=== PATIENT | male | born 1965 | race Caucasian/White ===

== ENCOUNTER → 2020-05-02 | Outpatient (CLI) | payer OTHER ==
--- NOTE | 2020-05-02 15:15 | US ---
EXAMINATION TYPE: US gallbladder DATE OF EXAM: 05/02/2020 COMPARISON: NONE CLINICAL HISTORY: 55-year-old male R10.11 RUQ pain. Abnormal blood work TECHNIQUE: Multiple sonographic images of the right upper quadrant are obtained. FINDINGS: EXAM MEASUREMENTS: Liver Length: 15.7 cm Gallbladder Wall: 0.2 cm CBD: 0.5 cm Right Kidney: 11.6 x 5.2 x 5.2 cm Pancreas: Obscured by bowel gas Liver: Partially Obscured by overlying bowel gas . Visualized portions show no discrete abnormality. Gallbladder: No abnormal distention, wall thickening, pericholecystic fluid, or shadowing calculi. Evidence for sonographic Reveles's sign: No CBD: wnl Right Kidney: No hydronephrosis. IMPRESSION: Limited visualization of portions of the pancreas and liver. No gallstones or biliary margo kayleigh dilatation.
== END | disposition home or self-care (01) ==
LOC: RADUSWWP 10:24
PROVIDERS: ATTEND Family Medicine
DX: R10.11 Right upper quadrant pain (principal)
CPT/HCPCS: 76705